=== PATIENT | male | born 1940 | race Caucasian/White ===

== ENCOUNTER → 2018-10-13 | Outpatient (CLI) | payer BC, MEDICARE ==
--- NOTE | 2018-10-13 12:55 | RADIOLOGY REPORT (SQ) ---
EXAM DESCRIPTION: NM WHOLE BODY BONE SCAN COMPLETED DATE/TIME: 10/13/2018 12:23 pm REASON FOR STUDY: C61 PROSTATE C61 MALIGNANT NEOPLASM OF PROSTATE COMPARISON: CT abdomen pelvis 03/23/2018. RADIONUCLIDE AND DOSE: 20 millicuries Tc99m HDP. The route of agent administration: Intravenous. ADDITIONAL DRUGS AND DOSES: None. TECHNIQUE: Routine delayed images at 3 hours post radionuclide injection acquired of the bony skelet on including anterior and posterior whole-body projections and additional focused images as needed. LIMITATIONS: None. FINDINGS: BONES: Normal visualization without areas of photopenia or increased bony uptake of radiop harmaceutical. Mild degenerative uptake at the base of each thumb. KIDNEYS: Symmetric excretion without obstruction. OTHER: No other significant finding. IMPRESSION: There is no evidence of metastatic disease to bone. COMMENT: Quality measure 147: Current bone scan is compared with any available plain radiographs, p rior bone scans, and CT/MRI. TECHNICAL DOCUMENTATION: JOB ID: [id number] [employer]- All Rights Reserved Reading location - IP/workstation name: [email or web address]
== END ==
LOC: RAD 07:39
PROVIDERS: ATTEND Urology
DX: C61 Malignant neoplasm of prostate (principal)
CPT/HCPCS: 78306; A9561; Q9969

== ENCOUNTER 2018-12-07 01:03 | Emergency (ER) | payer BC, MEDICARE ==
[2018-12-07] MEDS ORDERED: FAMOTIDINE INJ/PF 20 MG/2 ML SDV IV ONE (01:31)
[2018-12-07] MEDS ORDERED: METHYLPREDNISOLONE INJ 125 MG/2 ML SDV IV ONE (01:31)
--- NOTE | 2018-12-07 01:32 | ER Document Report ---
ED Allergic Reaction - General Chief Complaint: Allergic Reaction Stated Complaint: RASH Time Seen by Provider: 12/07/18 01:23 Notes: Patient is a 78-year-old male that comes to the emergency department for chief complaint of allergic reaction. He states he broke out into a rash tonight, he took 25 mg of Benadryl and went to bed. He states he woke up itching worse with spreading of the rash including his abdomen, arms, back, and thighs. He took 50 mg of Benadryl and came to the emergency department. He denies difficulty swallowing or breathing, swelling of the tongue, throat, face, abdominal pain, nausea/vomiting. He is currently performing the colonoscopy prep including magnesium citrate and Dulcolax. He denies any obvious abnormal foods or allergens. He denies history of the same. He denies any cardiovascular history. TRAVEL OUTSIDE OF THE [place] IN LAST 30 DAYS: No - Related Data Home Medications: omeprazole, meloxicam,lovastatin--none for a wk. magnesium citrate, miralax, duclolax Past Medical History - General Information source: Patient - Social History Smoking Status: Never Smoker Frequency of alcohol use: None Drug Abuse: None Lives with: Family Family History: Reviewed & Not Pertinent Patient has suicidal ideation: No Patient has homicidal ideation: No - Immunizations Immunizations up to date: Yes Hx Diphtheria, Pertussis, Tetanus Vaccination: Yes Review of Systems - Review of Systems Constitutional: No symptoms reported EENT: No symptoms reported Cardiovascular: No symptoms reported Respiratory: No symptoms reported Gastrointestinal: No symptoms reported Genitourinary: No symptoms reported Male Genitourinary: No symptoms reported Musculoskeletal: No symptoms reported Skin: See HPI Hematologic/Lymphatic: No symptoms reported Neurological/Psychological: No symptoms reported Physical Exam - Vital signs Vitals: Temp Pulse Resp BP Pulse Ox 97.3 F 67 18 150/74 H 97 12/07/18 01:09 12/07/18 01:09 12/07/18 01:09 12/07/18 01:09 12/07/18 01:09 - Notes Notes: GENERAL: Alert, interacts well. No acute distress. HEAD: Normocephalic, atraumatic. EYES: Pupils equal, round, and reactive to light. Extraocular movements intact. ENT: Oral mucosa moist, tongue midline. Oropharynx unremarkable. Airway patent. Nares patent, no nasal septal hematoma, TM's intact. NECK: Full range of motion. Supple. Trachea midline. LUNGS: Clear to auscultation bilaterally, no wheezes, rales, or rhonchi. No respiratory distress. HEART: Regular rate and rhythm. No murmur ABDOMEN: Soft, non-tender. Non-distended. EXTREMITIES: Moves all 4 extremities spontaneously. No edema, normal radial and dorsalis pedis pulses bilaterally. No cyanosis. BACK: no cervical, thoracic, lumbar midline tenderness. No saddle anesthesia, normal distal neurovascular exam. Moves all extremities in full range of motion. NEUROLOGICAL: Alert and oriented x3. Normal speech. Cranial nerves II through XII grossly intact. PSYCH: Normal affect, normal mood. SKIN: Urticaria noted over the lower back, abdomen, forearms, and thighs. Normal skin otherwise with no vesicles, bulla, induration, fluctuance, or tenderness. Course - Re-evaluation Re-evalutation: Patient with urticaria but clear airway, no evidence of anaphylaxis, no reported symptoms of anaphylaxis. Patient was given IV Solu-Medrol and Pepcid to go with his Benadryl, after the symptoms completely resolved in a very short amount of time. Patient was monitored for over an hour, no progressing symptoms. Patient will be discharged with steroids, antihistamines, close follow-up, return precautions which were discussed in detail. Patient and state appreciation, understanding, agreement. - Vital Signs Vital signs: Temp Pulse Resp BP Pulse Ox 97.8 F 54 L 14 132/57 H 96 12/07/18 03:16 12/07/18 03:16 12/07/18 03:16 12/07/18 03:16 12/07/18 03:16 Discharge - Discharge Clinical Impression: Urticaria Condition: Stable Disposition: HOME, SELF-CARE Additional Instructions: Your examination showed urticaria (hives). This is usually an allergic reaction. The exact cause of this in your case is not certain at this time unfortunately. I recommend that you take the prednisone taper as prescribed, take the antihistamines daily for 1 week. Follow-up with primary care. Return immediately if you worsen including swelling of the face, tongue, throat, worsening rash, difficulty breathing, or any other concerning or worsening symptoms. Prescriptions: Cetirizine HCl [24Hour Allergy] 10 mg PO DAILY #20 tablet Prednisone [Deltasone 10 mg Tablet] 10 mg PO ASDIR PRN #21 tablet PRN Reason: Famotidine [Pepcid 20 mg Tablet] 20 mg PO DAILY #12 tablet
[2018-12-07 03:17] VITALS: BP 132/57
== END 2018-12-07 03:17 | disposition home or self-care (01) ==
LOC: ER 01:03
DX: L50.9 Urticaria, unspecified (principal); Z79.899 Other long term (current) drug therapy
CPT/HCPCS: J2930; S0028; 96374; 96375; 99282

== ENCOUNTER 2018-12-24 13:17 | Day surgery (SDC) | payer BC, MEDICARE ==
[~2018-12-24 13:17] MED LIST: CHONDR SU A NA/HYALUR INTRAOC KIT (SURGICARE) ONE; EPINEPHRINE INJ/PF 1 MG/1 ML AMPULE ONE; KETOROLAC TROMETHAMINE 0.45% 4 DROP/0.4 ML DROPERETTE OS PRN; LIDOCAINE 1% INJ-PF (10 MG/ML) 30 ML SDV ONE
[2018-12-24] MEDS: BESIFLOXACIN HCL 0.6% OPH SUSP 5 ML BOTTLE OS PRN ×5 (13:55→15:44)
[2018-12-24] MEDS ORDERED: ONDANSETRON HCL INJ/PF 4 MG/2 ML SDV ONE (14:18)
[2018-12-24] MEDS ORDERED: FENTANYL CITRATE INJ/PF 100 MCG/2 ML AMPUL ONE (14:19)
[2018-12-24] MEDS ORDERED: MIDAZOLAM 2 MG/2 ML INJ ONE (14:19)
[2018-12-24] MEDS: TETRACAINE HCL 0.5% OPH SOLN 4 ML OS PRN ×3 (14:40→15:21)
[2018-12-24] MEDS: CYCLOPENTOLATE 0.2%/PHENYLEPHRINE 1% OPH SOLN 2 ML OS PRN ×3 (14:41→15:08)
[2018-12-24] MEDS: TROPICAMIDE 1% OPH SOLN 15 ML OS PRN ×3 (14:41→15:08)
[2018-12-24] MEDS: DORZOLAMIDE HCL 2%/TIMOLOL MALEAT 0.5% OPH SOLN 10 ML OS PRN ×3 (15:44→15:55)
--- NOTE | 2018-12-26 11:28 | Operative Report ---
Operative Report-[facility] Operative Report: PREOPERATIVE DIAGNOSIS: Nuclear, cortical and posterior subcapsular cataract, left eye POSTOPERATIVE DIAGNOSIS: Nuclear, cortical and posterior subcapsular cataracts, left eye PROCEDURE: Phacoemulsification and posterior chamber intraocular lens implant, left eye PROCEDURE DATE: [December 24, 2018] SURGEON: Goran Patel MD Next [employer] W[employer]HOUSE DEVELOPER: [Violette] ANESTHESIA: Topical with IV sedation next COMPLICATIONS: None TISSUE TO PATHOLOGY: None ESTIMATED BLOOD LOSS: None INDICATION FOR SURGERY: [Mr. Hinton is a 78 year old male] Who presents to our clinic complaining of difficulty seeing, to read and drive due to blurry vision in both eyes. On examination, she was found to have best corrected visual acuity of [20/40] in the left eye. Ophthalmoscopy revealed a [2+] nuclear, [2+] corneal degeneration, [trace] posterior subcapsular cataract in the left eye with normal appearing cornea, vitreous, retina and optic nerve. I discussed the findings of the exam with the patient. We discussed the risks, benefits and alternatives of cataract extraction and intraocular lens implant in the left eye as a means of improving her vision. Risks that were discussed with the patient include infection, bleeding, retinal detachment and possible need for additional surgery. The patient understands that she may need to wear glasses after surgery. After discussion, the patient indicated her interest in having this procedure performed by signing an informed witness consent form. REPORT OF PROCEDURE: On the day of surgery, the patient was given a topical application to the left eye to consist of drop of Tetracaine 0.5%, tropicamide 1%, Cyclomidril, Besivance 0.6% and Acular 0.45%. The patient was then taken to the operating room in a supine position in a standard eye bed. Intravenous sedation was administered and she was prepped and draped in the standard fashion. A timeout was performed to confirm the surgical site. Attention was directed to the left eye where a paracentesis was created at the 5:30 position at the corneal limbus with a 15 degree blade. The anterior chamber was filled with 0.3 mL of 1% methylparaben free lidocaine and after 30 seconds the anterior chamber was filled with viscoelastic material. A 3 plane corneal incision was then made at the 3 o'clock position at the cornea limbus with a keratome. A continuous curvilinear capsulorrhexis was then made in the anterior capsule of the lens with a cystotome. The lens was hydrodissected using balanced saline solution. The lens nucleus was then removed by phacoemulsification using the stop and chop technique. CDE [11.22 ]. The remaining cortical material was then removed from the posterior capsular bag using irrigation and aspiration. The posterior capsule bag was filled with viscoelastic material and a lens implant was inserted into the posterior capsule bag. I have chosen for this case is a one piece acrylic lens from [employer] model [[id number]], serial number [[id number]], lens power [19.0]. The lens was removed from its package, inspected and found to be free of defects it was loaded into a [place] D hat forming machine operator. The hat forming machine operator was passed through the temporal wound and the lens was advanced into the posterior capsular bag. The lens implant was centered in the posterior capsular bag with the Shadi spatula the viscoelastic material was removed from the eye using irrigation and aspiration. The wounds were closed by stromal hydration and they were tested with the Weck-Niesha sponges and found to have no leaks. Intraocular pressure was assessed by manual palpitation found to be with in the physiologic range. The drape and speculum were removed. Drops of Durezol, Combigan and gatifloxacin were instilled in the left eye. The patient was then taken to the recovery room in good condition. The patient tolerated the procedure very well. The patient was given a prescription for gatifloxacin, Durezol and Ilervo to use every 2 hours while awake today. She will return my clinic tomorrow for follow-up evaluation.
== END 2018-12-24 16:38 | disposition home or self-care (01) ==
LOC: SC 13:17
PROVIDERS: ATTEND Ophthalmology
DX: H25.812 Combined forms of age-related cataract, left eye (principal); I10 Essential (primary) hypertension; Z79.899 Other long term (current) drug therapy
CPT/HCPCS: 66984; J2250; J3490 ×3; J0171; J3010; J2405; 142